=== PATIENT | female | born 1970 | race African-American/Black ===

== ENCOUNTER 2017-07-03 08:36 | Emergency (ER) | payer MEDICAID ==
[2016-07-07 10:47] VITALS: BMI 33.0
[~2017-07-03 08:36] MED LIST: CLARITIN 10 MG10 MG PO; ELIQUIS2.5 MG PO; LEVOTHYROXINE75 MCG PO; PERCOCET 10/3251 TA1 PO
== END 2017-07-03 10:40 | disposition home or self-care (01) ==
LOC: D.ER 08:36
DX: S82.831A Other fracture of upper and lower end of right fibula, initial encounter for closed fracture (principal); W01.0XXA Fall on same level from slipping, tripping and stumbling without subsequent striking against object, initial encounter; Y93.89 Activity, other specified; Y92.239 Unspecified place in hospital as the place of occurrence of the external cause; E03.9 Hypothyroidism, unspecified

== ENCOUNTER 2017-07-10 09:36 | Day surgery (SDC) | payer MEDICAID ==
[~2017-07-10] VITALS: Ht 177.8 cm; Wt 99.8 kg
--- NOTE | ~2017-07-10 | OP ---
PATIENT NAME: LILIA WHELAN MEDICAL RECORD: [id number] :72 LOCATION:D.OPS ADMISSION DATE: SURGEON: SAUMYA RAWLS MD DATE OF OPERATION: 07/10/2017 PREOPERATIVE DIAGNOSIS: Displaced fracture of the right lateral malleolus. POSTOPERATIVE DIAGNOSIS: Displaced fracture of the right lateral malleolus. PROCEDURE: Open reduction and internal fixation of right lateral malleolus. Case done under fluoroscopic guidance. SURGEON: Saumya Rawls MD. ANESTHESIA: General. INTRAOPERATIVE COMPLICATIONS: None. SUMMARY OF PATHOLOGIC FINDINGS: The patient had a displaced lateral malleolus consistent with preoperative radiographs. OPERATIVE SUMMARY IN DETAIL: After obtaining the appropriate preoperative orthopedic surgery consent as well as anesthetic consultation, evaluation and clearance, the patient was brought to the operating room and placed on the operating table in supine position. After adequate general laryngeal mask airway was administered, tourniquet was placed about the proximal aspect of the right lower extremity. Right lower extremity was then prepped and draped in routine sterile fashion. The leg was elevated and exsanguinated, tourniquet inflated to 350 mmHg. An incision was made directly over the fibula, it was taken down to the level of fracture, which was exposed. All fracture hematoma was removed using curette. The bone was reduced and held in place while a VariAx lateral malleolar distal fibular plate, 77 mm, was put into place. A combination of both compression as well as locking screws were utilized under fluoroscopic guidance. Final radiographs were taken and submitted for radiologist review. The wound was copiously irrigated and closed with #1 Vicryl followed by 2-0 Vicryl and skin cristin. Sterile dressings were applied. Tourniquet was deflated and posterior L&U splint was applied. The patient was then taken to recovery room in stable condition. All final needle and sponge counts were correct. TRANSINT:[id number] Voice Confirmation ID: [id number] DOCUMENT ID: [id number] SAUMYA RAWLS MD CC: [id number] DICTATION DATE: 07/11/1751 TELEVISION STATION MANAGER: 07/11/17 1120 [facility] 07/10/17 [place] [address]
[~2017-07-10 09:36] MED LIST changes: +HYDROCODONE-APA1 TAB PO; +MOBIC7.5 MG PO
[2017-07-10] MEDS ORDERED: [UNRECOGNIZED DRUG - OTHER] (12:00)
[2017-07-10 12:30] VITALS: BP 128/77; Ht 177.8 cm; Wt 99.8 kg
--- NOTE | 2017-07-10 12:34 | NUR ---
REASSESSMENT OF PATIENT'S ANXIETY POST VALIUM: PATIENT REPORTS FEELING MORE RELAXED AND LESS ANXIOUS. PATIENT IS ALERT, ORIENTED, AND COOPERATIVE
[2017-07-10 12:59] LABS: HEMATOCRIT 34.7 % (36.0-48.0); HEMOGLOBIN 11.9 g/dL (12-16); MCH 27.7 pg (26.0-34.0); MCHC 34.3 g/dL (31.0-37.0); MCV 80.9 fL (80.0-100.0); MEAN PLATELET VOLUME 8.8 fL (7.4-10.4); RBC 4.29 10x6/uL (4.00-5.40); RDW 14.2 % (11.5-14.5); WBC 6.8 10x3/uL (4.8-10.8)
--- NOTE | 2017-07-10 13:11 | NUR ---
RING ON LEFT HAND TAPED TO LITTLE FINGER. THE PATIENT REPORTED SHE HAD NO FAMILY HERE TO COME TO TAKE CUSTODY OF IT.
[2017-07-10] MEDS ORDERED: HYDROCODONE-APA1 TAB PO (16:05)
--- NOTE | 2017-07-10 16:44 | NUR ---
1525 BACK FROM RT FOOT SURGERY. DRESSING C/D/I LEG LEG ELEVATED AND ICED. RESP EVEN AND NOMLABORED.
--- NOTE | 2017-07-10 16:45 | NUR ---
1555 TOLERATED FULL LIQUIDS.
--- NOTE | 2017-07-10 16:46 | NUR ---
1535 UP AND VOIDED. IV DCD CATHTER INTACT. DISCHARGE INSTRUCTIONS GIVEN AND VERBALLY UNDERSTANDS, BLOCK SHEET GIVEN AND ICE AND ELEVATE AND KEEP APPOINTMENT SCHEDULED. DENIES PAIN. UP AND DRESSED. USED CRUTCHES CALLED [place] WAITING FOR RIDE.
--- NOTE | 2017-07-10 17:16 | NUR ---
1635 NO COS OF PAIN RT FOOT DRESSING C/D/I FOOT ELEVATED AND ICED.CAPILLARY REFILL IMMEDIATE TO NAIL BEDS.
--- NOTE | 2017-07-10 17:17 | NUR ---
1635 WAS WHEN DISCHARGE INSTRUCTIONS GIVEN NOT 1535. WAITING FOR RIDE.
--- NOTE | 2017-07-10 17:18 | NUR ---
1700 RIDE HERE TO HOME VIA W/C.
== END 2017-07-10 17:00 | disposition home or self-care (01) ==
LOC: D.OPS 09:36
PROVIDERS: Anesthesiology
DX: S82.61XA Displaced fracture of lateral malleolus of right fibula, initial encounter for closed fracture (principal); E03.9 Hypothyroidism, unspecified; M19.90 Unspecified osteoarthritis, unspecified site; W10.9XXA Fall (on) (from) unspecified stairs and steps, initial encounter; Z01.812 Encounter for preprocedural laboratory examination

== ENCOUNTER → 2017-10-26 11:08 | Outpatient (CLI) | payer MEDICAID ==
[2017-07-10 12:30] VITALS: BMI 31.6
[~2017-10-26 11:08] MED LIST changes: +[UNRECOGNIZED DRUG - OTHER]
[2017-10-26 11:51] LABS: HEMATOCRIT 37.2 % (36.0-48.0); HEMOGLOBIN 12.7 g/dL (12-16); MCH 28.6 pg (26.0-34.0); MCHC 34.1 g/dL (31.0-37.0); MCV 83.8 fL (80.0-100.0); MEAN PLATELET VOLUME 8.4 fL (7.4-10.4); PLATELET COUNT 240 10x3/uL (130-400); RBC 4.44 10x6/uL (4.00-5.40); RDW 13.2 % (11.5-14.5)
[2017-10-26 12:09] LABS: ANION GAP 13.3 mmol/L (8-16); C-REACTIVE PROTEIN 0.3 mg/dL (0.0-0.9); CALCIUM 8.9 mg/dL (8.5-10.1); CARBON DIOXIDE 27.5 mmol/L (21.0-32.0); CREATININE - SERUM 0.9 mg/dL (0.6-1.3); POTASSIUM - SERUM 3.8 mmol/L (3.5-5.1)
[2017-10-26 12:12] LABS: APPEARANCE CLEAR (CLEAR); BILIRUBIN NEGATIVE (NEGATIVE); COLOR YELLOW (YELLOW); EPITHELIAL CELLS OCC /hpf (0-5); GLUCOSE NEGATIVE (NEGATIVE); KETONE NEGATIVE (NEGATIVE); NITRITE NEGATIVE (NEGATIVE); PROTEIN NEGATIVE (NEGATIVE); RED CELLS - URINE OCC /hpf (0-5); UROBILINOGEN NORMAL (NORMAL); WHITE CELLS - URINE RARE /hpf (0-5)
[2017-10-26 12:13] LABS: BACTERIA NONE SEEN /hpf (NONE SEEN)
[2017-10-26 15:09] LABS: ERYTHROCYTE SEDIMENTATION RATE 1 mm/hr (0-20)
[2017-10-27 11:17] LABS: ANA REFLEX - DIRECT Negative (Negative)
== END | disposition home or self-care (01) ==
LOC: D.LAB 11:08
PROVIDERS: Orthopaedic Surgery
DX: M25.50 Pain in unspecified joint (principal)

== ENCOUNTER 2018-05-08 09:51 | Emergency (ER) | payer MEDICAID ==
[~2018-05-08] VITALS: Ht 177.8 cm; Wt 97.7 kg
[2018-05-08 09:56] VITALS: Ht 177.8 cm; Wt 97.7 kg
[2018-05-08] MEDS ORDERED: TORADOL10 MG PO (10:40)
[2018-05-08] MEDS ORDERED: NEURONTIN 300300 MG PO (10:40)
[2018-05-08 10:47] VITALS: BP 122/76
== END 2018-05-08 10:53 | disposition home or self-care (01) ==
LOC: D.ER 09:51
DX: M54.2 Cervicalgia (principal); M50.30 Other cervical disc degeneration, unspecified cervical region